=== PATIENT | male | born 1955 | race Caucasian/White ===

== ENCOUNTER → 2017-01-11 | Outpatient (CLI) | payer BC ==
--- NOTE | 2017-01-11 21:26 | XCELERA REPORT ---
[address] [address] Transthoracic Echocardiogram Report Name: DAFNE CARRANZA III Age: 61 yrs Gender: Male : 1955 Patient Status: Outpatient Patient Location: [facility] Study Date: 01/11/2017 02:02 PM Height: 64 in Weight: 165 lb BSA: 1.8 m2 Procedure: A complete two-dimensional transthoracic echocardiogram was performed (2D, M-mode, spectral and color flow Doppler). The study was technically adequate with some images being suboptimal in quality. Reason For Study: MURMUR Ordering Physician: SHENA BEASLEY Performed By: Rc Bautista Interpretation Summary The left ventricular ejection fraction is within normal limits. There is mild concentric left ventricular hypertrophy. Doppler measurements suggest pseudonormalized left ventricular relaxation, which is associated with grade II/IV or mild to moderate diastolic dysfunction The left ventricle is grossly normal size. Wall motion cannot be accurately commented on, but no definite regional wall motion abnormalities noted. The right ventricular systolic function is normal. The right atrium is normal. The left atrium is mildly dilated. There is no mitral valve stenosis. There is a mild amount of mitral regurgitation There is mild aortic stenosis There is a mild amount of aortic regurgitation There is a trace to mild amount of tricuspid regurgitation There is mild pulmonary hypertension by echo Right ventricular systolic pressure is estimated to be elevated at 30- 40mmHg. Minimal pericardial effusion. MMode/2D Measurements \T\ Calculations RVDd: 3.3 cm LVIDd: 4.2 cm FS: 34.6 % Ao root diam: 3.2 cm IVSd: 1.1 cm LVIDs: 2.8 cm EDV(Teich): 80.6 ml LVPWd: 1.1 cm ESV(Teich): 29.0 ml Ao root area: 8.0 cm2 EF(Teich): 64.0 % LA dimension: 3.8 cm LVOT diam: 2.0 cm LVOT area: 3.3 cm2 Doppler Measurements \T\ Calculations MV E max shashank: MV P1/2t max shashank: Ao V2 max: AI max shashank: 70.6 cm/sec 72.3 cm/sec 242.4 cm/sec 333.6 cm/sec MV A max shashank: MV P1/2t: 48.0 msec Ao max PG: AI max P.5 cm/sec MVA(P1/2t): 4.6 cm2 23.5 mmHg 45.2 mmHg MV E/A: 0.75 MV dec slope: Ao V2 mean: AI dec slope: 441.1 cm/sec2 156.2 cm/sec 221.8 cm/sec2 MV dec time: Ao mean PG: AI P1/2t: 0.15 sec 12.1 mmHg 440.5 msec Ao V2 VTI: 43.5 cm CHARITO(I,D): 1.6 cm2 CHARITO(V,D): 1.3 cm2 LV V1 max PG: SV(LVOT): 70.8 ml PA V2 max: PI end-d shashank: 4.0 mmHg 81.2 cm/sec 131.7 cm/sec LV V1 mean PG: PA max P.7 mmHg 2.6 mmHg LV V1 max: 99.5 cm/sec LV V1 mean: 58.3 cm/sec LV V1 VTI: 21.6 cm TR max shashank: RAP systole: 236.2 cm/sec 10.0 mmHg TR max P.3 mmHg RVSP(TR): 32.3 mmHg Left Ventricle The left ventricle is grossly normal size. There is mild concentric left ventricular hypertrophy. The left ventricular ejection fraction is within normal limits. Doppler measurements suggest pseudonormalized left ventricular relaxation, which is associated with grade II/IV or mild to moderate diastolic dysfunction. Wall motion cannot be accurately commented on, but no definite regional wall motion abnormalities noted. Right Ventricle The right ventricle is grossly normal size. There is normal right ventricular wall thickness. The right ventricular systolic function is normal. Atria The right atrium is normal. The left atrium is mildly dilated. Interarterial septum not well visualized and not well dopplered. Cannot comment on ASD/PFO presence. Mitral Valve The mitral valve leaflets are sclerotic, but show no functional abnormalities. There is no mitral valve stenosis. There is a mild amount of mitral regurgitation. Aortic Valve The aortic valve is mildly calcified. There is mild aortic stenosis. There is a mild amount of aortic regurgitation. Tricuspid Valve The tricuspid valve is not well visualized, but is grossly normal. There is no tricuspid stenosis. There is a trace to mild amount of tricuspid regurgitation. There is mild pulmonary hypertension by echo. Right ventricular systolic pressure is estimated to be elevated at 30-40mmHg. Pulmonic Valve The pulmonic valve is not well visualized. Great Vessels The aortic root is not well visualized but is probably normal size. The inferior vena cava appeared normal and decreased > 50% with respiration (RAP 5-10 mmHg). Effusions Minimal pericardial effusion. : SHENA BEASLEY > Rosio Patel
== END ==
LOC: SP 13:34
PROVIDERS: ATTEND Nurse Practitioner
DX: R01.1 Cardiac murmur, unspecified (principal)
CPT/HCPCS: 93306

== ENCOUNTER → 2017-03-17 | Outpatient (CLI) | payer BC | LOC: RAD 07:33 | PROVIDERS: ATTEND Nurse Practitioner | DX: R05 Cough (principal) | CPT/HCPCS: 71250 ==

== ENCOUNTER → 2017-06-27 | Outpatient (CLI) | payer BC ==
--- NOTE | 2017-06-27 10:27 | RADIOLOGY REPORT (SQ) ---
EXAM DESCRIPTION: HIPLOITOIE SWALLOW COMPLETED DATE/TIME: 06/27/2017 8:37 am REASON FOR STUDY: Dysphagia, unspecified R 13.10, food in pharynx causing other injury, sequela T 17 .228 S COUGH (R05) R05 COUGH COMPARISON: None. TECHNIQUE: Videofluoroscopic swallowing examination was performed in conjunction with speech patholo gy. Videofluoroscopic imaging was obtained and reviewed and these are the findings: RADIATION DOSE: TOTAL FLUOROSCOPY TIME: 40 seconds 1 fluoroscopy image saved to PACS. LIMITATIONS: None FINDINGS: The patient was brought into the fluoro room and placed upright on a modified barium swall ow chair. The patient was then given multiple consistencies mixed with barium to swallow under live fluoroscopic video guidance. According to the Speech Pathologist there was flash laryngeal penetrati on with thin liquid consistencies. No other laryngeal penetration and no tracheal aspiration. Amanda l oral and pharyngeal transit time was observed. No significant post swallow residual was seen. Ple ase see speech pathology report for further details and recommendations. IMPRESSION: FLASH LARYNGEAL PENETRATION WITH THIN LIQUIDS. NO OTHER LARYNGEAL PENETRATION AND NO TR ACHEAL ASPIRATION.PLEASE SEE SPEECH PATHOLOGIST REPORT FOR OTHER FINDINGS AND RECOMMENDATIONS. COMMENT: Quality ID [id number]: Final reports for procedures using fluoroscopy that document radiation exp osure indices, or exposure time and number of fluorographic images (if radiation exposure indices are not available) TECHNICAL DOCUMENTATION: JOB ID: [id number] [employer]- All Rights Reserved
--- NOTE | 2017-06-27 11:54 | ST Modified Barium Swallow ---
Recommendation - Recommendations Recommendations: 1) Continue current diet. 2) Follow-up with referring physician. SUMMARY: Pt presents within functional limits swallow. No aspiration observed. No radiographic findings of oral or pharyngeal residuals. 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 Pt denies globus sensation, choking, history of PNA or bronchitis. Pt reports coughs on liquids "occasioanlly". Reports water gives him reflux. States began taking nexium 3 months ago which he states reduced his cough and reflux. Pt reports no longer taking nexium as he "ran out." PMHx: pt reports "leaky heart valve" and asbestos exposure. Medications: metformin, lantus. Allergies: lipitor - Functional Status Prior Functional Status: INDEPENDENT: ADL, IADL, leisure/play Current Functional Limitations: ADL, IADL, leisure/play - Subjective Patient/caregiver goal(s): safe swallow, r/o aspiration Cognitive-Linguistic Function: WNL Speech Intelligibility: WNL Current Nutritional Means: PO Current PO diet: Regular Current symptoms: Coughing Pain: 0/5 - Objective Assessment: Upright, Left Lateral - Food Trials Used Food trials used: Thin liquids, Pureed, Regular The patient: Was Able to Self Feed - Oral-Motor Skills Velo-pharyngeal function: Unremarkable Laryngeal Function: Volitional Cough, Volitional Swallow - Assessment Oral prep: Normal Labial closure: Adequate Leakage: None Mastication: Adequate Lingual Movement: Normal Oral stage: Normal for this Procedure - Pharyngeal Stage Initiation of Pharyngeal Stage Reflex: Normal Decreased laryngeal elevation: No Reduced Velopharyngeal Closure: no Reduced pressure generation: No reduced tongue-based retraction: No Pre-swallow pooling in valleculae: None Pre-Swallow pooling in pyriforms: None Reduced Thyro-Hyoid approximation: No Reduced epiglottic excursion: No Reduced pharyngeal peristalsis/contraction: No Post-swallow residulas vallecular: None Post-Swallow residuals in pyriforms: None Post-Swallow Residuals: no residuals Reduced Cricopharyngeal opening: No - Fall Risk Assessment Medications/Conditions that increase fall risks include: Antidepressants, sedatives, anti-arrhythmic, diuretic, benzodiazipenes, neuroleptics. BP regulation problems, cardiac problems, balance or gait deficits, neurological problems. Is patient considered at risk for falls: no Fall Risk Actions Taken: No action needed - Behavioral Observations During evaluation process patient: was pleasant, was cooperative, able to answer questions, provided medical history - Treatment / Educational Needs: Treatment/Education Needs: Treatment consisted of patient education on the role of the Speech Pathologist. Patient's plan of care and golas were communicated as well as scheduling and attendance policies. Recommendations for initial home program were shared. Patient demonstrated understanding and verbalized agreement. - Impression/Summary Laryngeal Penetration: Yes, Flash, during swallow - penetration observed to clear Consistency: Thin Tracheal Aspiration: no Patient presents with: Normal swallow at eval Risk of Aspiration: Minimal - pt educated to reduce use of straws - Recommendations NPO: no Solid diet recommendations: Regular Liquid Diet Modification: Thin Strict aspiration precautions: No Pt/Family education and followup with MD: Yes Dysphagia therapy with MARKETING PROJECT MANAGER: no Recommended techniques: Fully Upright During Meal Supervision: Independent Information, Precautions and Recommendations: Patient (Verbal) - Time Total Time: 30 - Plan of Care Strategies to optimize patient understanding include:: ongoing assessment of educational needs, implementation of educational strategies, and re-education. - - -: Thank you for the opportunity to work with this patient and his/her family. Should you have any questions about this patient's plan or progress, I can be reached at [phone]. Charge G Code? - - -: No
== END ==
LOC: RAD 07:24
PROVIDERS: ATTEND Internal Medicine Pulmonary Disease
DX: R05 Cough (principal); R13.10 Dysphagia, unspecified
CPT/HCPCS: 74230